=== PATIENT | female | born 1955 | race Caucasian/White ===

== ENCOUNTER → 2016-08-30 | Outpatient (CLI) | payer OTHER ==
[~2016-08-30] MED LIST: ASPEC81 PO; LBT300 PO; LSX80 PO; POTA10CA28 PO; SPR25 PO; SYMIN8045 INH
[2016-08-30 16:21] LABS: BLOOD UREA NITROGEN 17 mg/dl (7-18); BUN/CREATININE RATIO 17.1 (10-20); CALCIUM 8.8 mg/dl (8.5-10.1); CARBON DIOXIDE 30 mmol/L (21-32); CHLORIDE 104 mmol/L (98-107); CREATININE 0.98 mg/dl (0.60-1.20); GLUCOSE 81 mg/dl (70-99); POTASSIUM 3.9 mmol/L (3.5-5.1); SODIUM 141 mmol/L (136-145)
== END | disposition home or self-care (01) ==
LOC: C.LAB1850 14:20
PROVIDERS: ATTEND Internal Medicine Cardiovascular Disease
DX: Z00.00 Encounter for general adult medical examination without abnormal findings (principal); I10 Essential (primary) hypertension; I50.32 Chronic diastolic (congestive) heart failure

== ENCOUNTER → 2016-11-19 | Outpatient (CLI) | payer OTHER ==
[2016-11-19 13:35] LABS: ALT/SGPT 24 U/L (12-78); AST/SGOT 20 U/L (15-37)
== END | disposition home or self-care (01) ==
LOC: C.LAB1850 11:42
PROVIDERS: ATTEND Internal Medicine Cardiovascular Disease
DX: E78.5 Hyperlipidemia, unspecified (principal)

== ENCOUNTER → 2017-02-15 | Outpatient (CLI) | payer OTHER ==
[2017-02-15 15:16] LABS: BASO % 0.9 %; BASO ABS # 0.07 K/uL (0-0.2); COMPLETE YES; EOS % 2.8 %; HEMATOCRIT 42.5 % (37-47); IG% 0.1 %; LYMPH % 12.6 %; LYMPH ABS # 0.99 K/uL (1.2-3.4); MEAN CELL VOLUME 89.5 fL (80-100); MEAN CORPUSCULAR HEMOGLOBIN 28.2 pg (25-34); MEAN CORPUSCULAR HGB CONC 31.5 g/dl (32-36); MEAN PLATELET VOLUME 11.1 fL (7.4-10.4); NEUT % 77.6 %; PLATELET COUNT 349 K/uL (130-400); RED BLOOD COUNT 4.75 M/uL (4.2-5.4); WHITE BLOOD COUNT 7.85 K/uL (4.8-10.8)
[2017-02-15 15:26] LABS: ALT/SGPT 27 U/L (12-78); AST/SGOT 19 U/L (15-37); BLOOD UREA NITROGEN 18 mg/dl (7-18); BUN/CREATININE RATIO 17.8 (10-20); CALCIUM 9.2 mg/dl (8.5-10.1); CARBON DIOXIDE 31 mmol/L (21-32); CHLORIDE 103 mmol/L (98-107); CREATININE 0.99 mg/dl (0.60-1.20); GLUCOSE 98 mg/dl (70-99); SODIUM 140 mmol/L (136-145)
[2017-02-15 15:29] LABS: ALB/GLOB RATIO 1.1 (0.9-2); ALKALINE PHOSPHATASE 144 U/L (45-117); CHOLESTEROL 147 mg/dl (0-200); CHOLESTEROL/HDL RATIO 2.8; HDL CHOLESTEROL 53 mg/dl; TRIGLYCERIDES 156 mg/dl (0-150); VERY LOW DENSITY LIPOPROT CALC 31 mg/dl
== END | disposition home or self-care (01) ==
LOC: C.LABSPEC 14:52
PROVIDERS: ATTEND Internal Medicine
DX: M19.90 Unspecified osteoarthritis, unspecified site (principal); I10 Essential (primary) hypertension; E78.5 Hyperlipidemia, unspecified

== ENCOUNTER → 2017-06-15 | Outpatient (CLI) | payer OTHER ==
[~2017-06-15] MED LIST changes: -ASPEC81 PO; +ASPI-320 PO; +SPIR25TA6 PO; -SPR25 PO
[2017-06-15 15:41] LABS: ALT/SGPT 33 U/L (12-78); AST/SGOT 23 U/L (15-37); BLOOD UREA NITROGEN 19 mg/dl (7-18); CALCIUM 8.8 mg/dl (8.5-10.1); CARBON DIOXIDE 32 mmol/L (21-32); CHOLESTEROL 168 mg/dl (0-200); CREATININE 1.12 mg/dl (0.60-1.20); GLUCOSE 94 mg/dl (70-99); POTASSIUM 3.6 mmol/L (3.5-5.1); SODIUM 140 mmol/L (136-145)
[2017-06-15 15:51] LABS: ALKALINE PHOSPHATASE 130 U/L (45-117); HEMATOCRIT 39.6 % (37-47); HEMOGLOBIN 12.9 g/dL (12.0-16.0); LDL CHOLESTEROL (DIRECT) 92 mg/dl; MEAN CELL VOLUME 89.6 fL (80-100); MEAN CORPUSCULAR HEMOGLOBIN 29.2 pg (25-34); MEAN CORPUSCULAR HGB CONC 32.6 g/dl (32-36); PLATELET COUNT 313 K/uL (130-400); RED CELL DISTRIBUTION WIDTH SD 45.8 fL (36.4-46.3); TOTAL PROTEIN 7.5 gm/dl (6.4-8.2); WHITE BLOOD COUNT 6.06 K/uL (4.8-10.8)
[2017-06-15 15:52] LABS: BASO % 0.7 %; BASO ABS # 0.04 K/uL (0-0.2); EOS % 3.1 %; EOS ABS # 0.19 K/uL (0-0.5); IG# 0.01 K/uL (0.00-0.02); LYMPH % 18.6 %; LYMPH ABS # 1.13 K/uL (1.2-3.4); MONO % 6.1 %; MONO ABS # 0.37 K/uL (0.11-0.59); NEUT % 71.3 %; NEUT ABS # 4.32 K/uL (1.4-6.5)
== END | disposition home or self-care (01) ==
LOC: C.LABSPEC 15:01
PROVIDERS: ATTEND Internal Medicine
DX: I50.32 Chronic diastolic (congestive) heart failure (principal); I11.0 Hypertensive heart disease with heart failure; R53.83 Other fatigue

== ENCOUNTER → 2017-09-20 | Outpatient (CLI) | payer OTHER ==
[~2017-09-20] MED LIST changes: +ASPEC81 PO; -ASPI-320 PO; -SPIR25TA6 PO; +SPR25 PO
--- NOTE | 2017-09-21 07:58 | MAMMOGRAPHY REPORT ---
BILATERAL DIGITAL SCREENING MAMMOGRAM TOMOSYNTHESIS WITH CAD: 09/20/2017 CLINICAL HISTORY: Routine screening. Patient has no complaints. TECHNIQUE: Breast tomosynthesis in addition to standard 2D mammography was performed. Current study was also evaluated with a Computer Aided Detection (CAD) system. COMPARISON: Comparison is made to exam dated: 03/05/2005 mammogram - [facility]. BREAST COMPOSITION: There are scattered areas of fibroglandular density in both breasts. FINDINGS: The parenchymal pattern is unchanged. No developing mass, architectural distortion or clus ter of suspicious microcalcifications is seen in either breast. IMPRESSION: ACR BI-RADS CATEGORY 2: BENIGN There is no mammographic evidence of malignancy. A 1 year screening mammogram is recommended. The pa tient will receive written notification of the results. Approximately 10% of breast cancers are not detected with mammography. A negative mammographic report should not delay biopsy if a clinically suggestive mass is present. Scarlett French M.D. ay/:09/20/2017 13:53:27 Electric Motor Control Assembler: Sylvia Sohrt, [facility] letter sent: Normal 1/2 BI-RADS Code: ACR BI-RADS Category 2: Benign
== END | disposition home or self-care (01) ==
LOC: C.MAMM 13:11
PROVIDERS: ATTEND Internal Medicine
DX: Z12.31 Encounter for screening mammogram for malignant neoplasm of breast (principal)

== ENCOUNTER → 2017-10-06 | Outpatient (CLI) | payer OTHER ==
[~2017-10-06] VITALS: Ht 154.9 cm; Wt 118.2 kg
[~2017-10-06] MED LIST changes: -ASPEC81 PO; +ASPI-320 PO
[2017-10-06 10:59] VITALS: BP 133/73; PULSE 80; Ht 154.9 cm; Wt 118.2 kg
== END | disposition home or self-care (01) ==
LOC: C.NEUR 09:40
PROVIDERS: ATTEND Internal Medicine Pulmonary Disease
DX: G47.33 Obstructive sleep apnea (adult) (pediatric) (principal); I27.20 Pulmonary hypertension, unspecified; I50.32 Chronic diastolic (congestive) heart failure; Z88.5 Allergy status to narcotic agent; Z88.8 Allergy status to other drugs, medicaments and biological substances

== ENCOUNTER → 2017-10-09 | Outpatient (CLI) | payer OTHER ==
--- NOTE | 2017-10-10 06:05 | PAP/PSG TECHNICIAN REPORT ---
[facility] Ed Transporter Polysomnogram Report Study name: None Report date: 10/10/2017 Study date: 10/09/2017 Referring Physician: Dr. Holden Name: KERRI CORLEY Interpreting Physician: Dell Holden D.O. Date of : 1955 Ed Transporter: RON Rosales. Sex: Female Age: 62 StudyType: PSG Weight: 260 lbs 17 inches Height: 62 years, Height 5' 1" Neck Circum: BMI: 49.12 Medications: FUROSEMIDE 40 MG, ATORVASTATIN CALCIUM 20 MG, ASPIRIN 81 MG, LABETALOL HCL 300 MG, HYDRALAZINE HCL 100 MG Patient History PATIENT HAS HISTORY OF CHF, PULMONARY HYPERTENSION, SNORING AND FATIGUE. SHE ALSO HAS AN IRREGULAR SLEEP SCHEDULE 6 MONTHS OUT OF THE YEAR FOR WORK. SHE IS HERE TODAY FOR AN EVALUATION FOR CLEMENTINA. ESS = 2 RM 6 Parameters Monitored NPSG: E1-M2, E2-M1, Fp1-M2, Fp2-M1, F3-M2, F4-M2, F4-M1, C3-M2, C4-M2, C4-M1, O1-M2, O2-M2, O2-M1, T3-M2, T4-M1, P3-M2, P4-M1, CHIN1, CHIN2, HR, EKG, Legs, PFLOW, SNOR, FLOW, CFLOW, Tidal Volume, THOR, ABDO, SpO2, PLTH, CPRESS, ETCO2 Wave, ETCO2, pH Sleep Architecture Sleep Stages Time at Lights Off 10:29:41 PM STAGES Time (min.) TST (%) Time at Lights On 5:31:41 AM Wake 50.5 -- Total Recording Time (TRT) 422.50 min. N1 25.5 7 Total Sleep Period (TSP) 413.0 min. N2 296.0 80 Total Sleep Time (TST) 371.5min. N3 0.0 0 Awake Time 50.5 min. REM 50.0 13 Wake after Sleep Onset 41.5 min. Sleep Efficiency (SE) 88 % Sleep Onset Latency (AKASH) 9.0 min. Number of Stage 1 Shifts None Awakenings 15 Stage Changes 68 Number of REM periods 2 REM 50.0 13 REM Latency 205.5 min. NREM 321.5 87 Body Position Analysis Supine Right Left Side Prone Vertical Total Sleep Time (min.) 15.2 110.5 251.0 361.50 0.0 0.0 Total Sleep Time (%) 3% 30% 68% 97 0% N/A% Total Sleep Time REM (min.) 0.0 0.0 50.0 None 0.0 0.0 Total Sleep Time NREM (min.) 10.0 110.5 201.0 None 0.0 0.0 Intermittent Wake (min.) 5.2 12.8 32.5 None 0.0 0.0 Total Sleep Period (%) 4% None None None None None Arousals Myoclonus (PLM) * Events Count Index Events Count Index Spontaneous 54 9 Events Awake (PLMW) 36 42.8 Respiratory 90 15.0 Events Asleep w/ Arousal (PLMA) 19 3.1 PLM 18 3 Events Asleep w/o Arousal (PLMS) 224 36.2 Snoring 29 5 Total Asleep 243 39.2 Total 188 30 Total 279 40 Respiratory Analysis * CA OA MA CH H RERA Total Count 2 10 0 0 414 6 426 Index 0.3 1.6 0.0 0 66.9 1 69.8 Mean Duration 26.0 24.7 0.0 0.00 19.9 16.8 20.0 Longest Duration 30.2 48.3 0.0 0.00 0.0 19.4 48.3 Respiratory Event Summary Total Supine ~Supine Right Left Prone REM NREM Apneas Count 12 2 10 2 8 N/A 7 5 Index 1.9 12 2 1.1 1.9 N/A 8 1 Hypopneas (4% Desat) Count 414 17 397 58 339 N/A 59 355 Index 66.9 102.0 66 31.5 81.0 N/A 70.8 66.3 Apneas & All Hypopneas Count 426 19 407 60 347 N/A 66 360 Index 68.8 114 68 33 83 N/A 79.2 67.2 Respiratory Events (Fiber Analyst+All Hyp+RERA) Count 426 19 413 64 349 N/A 66 360 Index 69.8 114 69 34.8 83.4 N/A 79.2 68.3 Respiratory Related Arousal Count 90 19 86 14 72 N/A 2 91 Index 15.0 42 14 8 17 N/A 2 17 Snoring Analysis Supine Right Left Prone REM NREM Total Snore duration 53.3 min Snores count 11 1,648 1,286 N/A 197 2,748 2,945 Snore mean duration 1.1 Sec Snores index 66 895 307 N/A 236.4 512.8 475.6 TST with snoring (%) 14.3% Desaturation Event Summary: Minimum %SpO2 Event Count Mean/Min/Max Duration(sec.) Desaturation Index % Time In Bed > 90 328 22.7 / 6.8 / 56.1 141.5 33.3 86 - 90 262 22.2 / 6.8 / 53.3 80.0 47.0 81 - 85 2 17.8 / 16.8 / 18.8 1.6 18.0 76 - 80 0 N/A 0.0 1.7 71 - 75 0 N/A 0.0 0.1 66 - 70 0 N/A 0.0 0.0 61 - 65 0 N/A 0.0 0.0 56 - 60 0 N/A 0.0 0.0 51 - 55 0 N/A 0.0 0.0 < 50 0 N/A 0.0 0.0 Total REM NREM Awake <50% 0.0 min. 0.0 min. 0.0 min. 0.0 min. 51 - 60% 0.0 min. 0.0 min. 0.0 min. 0.0 min. 61 - 70% 0.0 min. 0.0 min. 0.0 min. 0.0 min. 71 - 80% 7.3 min. 6.6 min. 0.5 min. 0.3 min. 81 - 90% 271.7 min. 25.7 min. 229.3 min. 16.7 min. 91 - 100% 139.1 min. 17.7 min. 89.1 min. 32.3 min. Average 89 88 88 91 Minimum SpO2 74 74 79 76 Desaturation Event Index 63.0 82.8 67.2 17.8 # Desat. Events below 89% 403 67 331 5 Time(%) with Saturation below 89% 47.3 6.2 40.0 1.2 Time(min.) with Saturation below 89% 197.9 25.8 167.0 5.1 Time (mins) REM (mins) NREM (mins) % of TST SpO2 Below 90% 421 69 N352 60.9 SpO2 Below 88% 151 0 0 43 Heart Rate Analysis Min (bpm) Max (bpm) Average (bpm) Awake 65 85 74 NREM 42 188 74 REM 61 83 73 Overall 42 188 73 Supplemental O2 Values Minimum O2 level: None Value Start Time End Time Ed Transporter Comments Mrs. Corley slept in the right, supine and left positions. No cardiac arrhythmia noted. Leg movements noted. No bruxism noted. Snoring was noted and scored as a 4 on a scale of 1 through 5. (0=no snoring, 5=snoring loud enough to be heard through a closed door or down the [address] way) Mrs. Corley awoke to use the restroom 0 times during the night. Mrs. Corley stated I did not sleep as well as I do when I am in my own bed. I entered the patient's room around 12:50 am to initiate a split-study but the patient informed me that she does not want to try CPAP at this time. I continued to run a baseline study. The patient was educated on CLEMENTINA and the potential risks that CLEMENTINA is associated with. Also, patient is aware of CPAP and what benefits in can provide when treating for CLEMENTINA. The patient was given a mask and was informed to bring it with her, if she decides to accept treatment at a later date. The final report will be interpreted and signed by a sleep physician. The completed physician report will then be placed in the patient medical record. Therapy (cm H2O) 0 TIB (min.) 422.0 TST (min.) 371.5 Sleep Onset (min.) 9.0 REM Onset From Sleep (min.) 205.5 Sleep Efficiency % 88 Wakefulness (%) 12 Wakefulness (min.) 50.5 NREM 1 (%) 7 NREM 1 (min.) 25.5 NREM 2 (%) 80 NREM 2 (min.) 296.0 NREM 3 (%) 0 NREM 3 (min.) 0.0 REM (%) 13 REM (min.) 50.0 # Arousals 188 Arousal Index 30 # Snore 2,945 Snore Index 475.6 AHI 68.8 AHI Supine 114 AHI Non-Supine 68 NREM AHI 67.2 REM AHI 79.2 RDI 69.8 # Obstructive Apnea 10 # Central Apnea 2 # Mixed Apnea 0 # Hypopneas 414 RERAs 6 Total Respiratory Events 436 Time Below SpO2 89% (min.) 192.8 Mean NREM SpO2 (%) 88 Mean REM SpO2 (%) 88 Mean Sleep SpO2 (%) 88 Min NREM SpO2 (%) 79 Min REM SpO2 (%) 74 Position Supine (min.) 15.2 Position Non-supine (min.) 361.5 LM Index Sleep 39.2 LM Index NREM 42.6 LM Index REM 18.0 Mean Heart Rate (bpm) 73 Min Heart Rate (bpm) 42
--- NOTE | 2017-10-11 16:37 | POLYSOMNOGRAPH REPORT ---
CLINICAL DATA: The patient is a 62-year-old female with a history of snoring and daytime tiredness. She has a history of pulmonary hypertension. This was an in-lab overnight polysomnography. The patient refused having a split study done. Her BMI is elevated at 49.12. SLEEP ARCHITECTURE: The total sleep period was 413 minutes. The total sleep time was 371.5 minutes. The sleep efficiency was minimally decreased to 88%. Sleep latency was 9 minutes. Wake after sleep onset was 41.5 minutes. There were 2 REM periods during the night. REM latency was prolonged to 205.5 minutes. Sleep consisted of stage N1 7%, stage N2 80%, stage N3 0%, stage REM 13%. AROUSAL DATA: The patient had 188 arousals including 54 spontaneous arousals, 90 respiratory arousals, 18 PLM arousals, and 29 snoring arousals. The arousal index was 30. PLM DATA: The patient had 243 periodic limb movements of sleep for a PLM index of 39.2. There were 19 arousals associated with limb movements for a PLM arousal index of 3.1. EKG: The underlying cardiac rhythm was normal sinus. The minimum heart rate was 42 beats per minute. The average heart rate was 73 beats per minute. No arrhythmia noted. RESPIRATORY DATA: The patient had a total of 426 respiratory events including 2 central apneas, 10 obstructive apneas, and 414 hypopneas. Hypopneas were scored according to the 4% desaturation rule. There were also 6 RERAs. The longest apnea was 48.3 seconds. The mean duration of the hypopneas was 19.9 seconds. The apnea-hypopnea index is severely elevated at 68.8 events per hour. This represents severe obstructive sleep apnea. OXIMETRY DATA: The average saturation for the night was 89%. The minimum saturation was 74%. There was a total of 197.9 minutes with saturations less than 89%. APPLICATIONS ADMINISTRATOR COMMENTS: The patient slept in the right, supine, and left positions. No cardiac arrhythmia noted. Leg movements noted. No bruxism noted. Snoring was noted and scored as a 4 on a scale of 1 through 5. The patient awakened to use the restroom zero times during the night. She stated she did not sleep as well as she usually does in her own bed. I entered the patient's room around 12:50 a.m. to initiate a split study, but the patient informed me that she does not want to try CPAP at this time. I continued to run a baseline study. The patient was educated on obstructive sleep apnea and the potential risks that CLEMENTINA is associated with. Also, patient is aware of CPAP and what benefits it can provide when treating for CLEMENTINA. The patient was given a mask and was informed to bring it with her. She decides to accept treatment at a later date. IMPRESSION: 1. Obstructive sleep apnea -- severe. 2. Periodic limb movement disorder. COMMENTS: The patient has very severe sleep apnea. Her sleep was severely fragmented with frequent awakenings and arousals. There was an increased frequency of events when she was supine with an apnea-hypopnea index supine of 114. During REM sleep, the apnea-hypopnea index was 79.2. She declined to have a split study during the night when she had clearly qualified. RECOMMENDATIONS: 1. It is strongly advised that the patient get treated with nasal CPAP in light of the severity of her disease. This could be done by auto CPAP if desired. 2. Weight loss is advised in light of the elevation of body mass index at 49.12. 3. The patient should avoid sleeping in the supine position. She spent relatively little time during this study in the supine position. 4. The patient should be advised of the appropriate principles of sleep hygiene including having a regular sleep-wake schedule and allowing sufficient sleep time.
== END | disposition home or self-care (01) ==
LOC: C.NEUR 21:00
PROVIDERS: ATTEND Internal Medicine Pulmonary Disease
DX: G47.33 Obstructive sleep apnea (adult) (pediatric) (principal); I27.20 Pulmonary hypertension, unspecified; I50.32 Chronic diastolic (congestive) heart failure

== ENCOUNTER → 2017-10-26 | Outpatient (CLI) | payer OTHER ==
[2017-10-26 12:05] LABS: HEMATOCRIT 38.2 % (37-47); HEMOGLOBIN 12.5 g/dL (12.0-16.0); MEAN CELL VOLUME 87.2 fL (80-100); MEAN CORPUSCULAR HEMOGLOBIN 28.5 pg (25-34); MEAN CORPUSCULAR HGB CONC 32.7 g/dl (32-36); MEAN PLATELET VOLUME 10.4 fL (7.4-10.4); PLATELET COUNT 325 K/uL (130-400); RED CELL DISTRIBUTION WIDTH SD 44.7 fL (36.4-46.3); WHITE BLOOD COUNT 5.03 K/uL (4.8-10.8)
[2017-10-26 12:31] LABS: ALT/SGPT 25 U/L (12-78); AST/SGOT 19 U/L (15-37); BLOOD UREA NITROGEN 23 mg/dl (7-18); CALCIUM 8.8 mg/dl (8.5-10.1); CARBON DIOXIDE 30 mmol/L (21-32); CREATININE 1.19 mg/dl (0.60-1.20); GLUCOSE 100 mg/dl (70-99); POTASSIUM 3.5 mmol/L (3.5-5.1); SODIUM 140 mmol/L (136-145)
[2017-10-26 12:34] LABS: CHOLESTEROL 155 mg/dl (0-200); LDL CHOLESTEROL CALCULATED 77 mg/dl
== END | disposition home or self-care (01) ==
LOC: C.LAB1850 10:32
PROVIDERS: ATTEND Internal Medicine Cardiovascular Disease
DX: I11.0 Hypertensive heart disease with heart failure (principal); I50.32 Chronic diastolic (congestive) heart failure; E78.5 Hyperlipidemia, unspecified; I27.20 Pulmonary hypertension, unspecified